=== PATIENT | male | born 1980 | race Two or more races ===

== ENCOUNTER 2016-08-23 21:05 | Emergency (ER) | payer OTHER ==
[2016-08-23 21:14] VITALS: TEMP 98.4; O2SAT 98
[2016-08-23] MEDS ORDERED: MECLIZINE HCL 25 MG TAB PO ONE (22:03)
[2016-08-23] MEDS ORDERED: NS 1,000 ML IV ONE (22:03)
--- NOTE | 2016-08-23 22:05 | EDPHY ---
H & P Stated Complaint: R side AMAYA w/ radiation, dizziness, vertigo, x1wk Time Seen by Provider: 08/23/16 21:55 HPI/ROS: Chief Complaint: Dizziness HPI: 35-year-old male presenting with 1 week dizziness and unsteadiness on his feet. He has a mild headache on the right side. Some nausea but no vomiting. Room is not spinning. Does not feel lightheaded. Does have a history of similar episode about a year ago. He was treated with some pills that he got at the pharmacy and symptoms resolved. He has a history of hypertension but is not compliant with medications. Headache is mild about a 2/10. Symptoms right worse when he looks down or moves his head rapidly. It is not positional. No fevers or chills. No neck pain. No recent illness. ROS: 10 point Review of Systems is negative except as noted in the HPI. PMH: Hypertension, gout, anxiety, vertigo Medications: None Allergies: No known drug allergies Social History: No smoking, occasional alcohol, no recreational drug use Family History: non-contributory Physical Exam: Gen: Awake, Alert, No Distress HEENT: Nose: no rhinorrhea Eyes: PERRLA, EOMI Mouth: Moist mucosa Neck: Supple, no JVD Chest: nontender, lungs clear to auscultation Heart: S1, S2 normal, no murmur Abd: Soft, non-tender, no guarding Back: no CVA tenderness, no midline tenderness Ext: no edema, non-tender Skin: no rash Neuro: CN II-XII intact, Sensation grossly intact, Strength 5/5 in bilateral upper and lower extremities - Personal History Current Tetanus/Diphtheria Vaccine: Yes Current Tetanus Diphtheria and Acellular Pertussis (TDAP): Yes - Medical/Surgical History Hx Asthma: No Hx Chronic Respiratory Disease: No Hx Diabetes: No Hx Cardiac Disease: No Hx Renal Disease: No Hx Cirrhosis: No Hx Alcoholism: No Hx HIV/AIDS: No Hx Splenectomy or Spleen Trauma: No Other PMH: Gout, HTN, vertigo. No psh - Social History Smoking Status: Never smoked Constitutional: Initial Vital Signs Temperature (C) 36.9 C 08/23/16 21:10 Heart Rate 92 08/23/16 21:10 Respiratory Rate 16 08/23/16 21:10 Blood Pressure 168/113 H 08/23/16 21:10 O2 Sat (%) 98 08/23/16 21:10 O2 Delivery Mode Room Air Allergies/Adverse Reactions: No Known Allergies Allergy (Verified 05/07/15 20:51) Home Medications: Medication Instructions Recorded Amlodipine Besylate 08/03/13 Lisinopril 08/03/13 Meclizine HCl [Meclizine HCl 25 mg 25 mg PO BID PRN #20 tab 05/07/15 (RX,OTC)] Advil 08/23/16 Meclizine HCl [Meclizine HCl 12.5 12.5 mg PO Q6 PRN #15 tab 08/23/16 mg (*)] Medical Decision Making - Data Points Medications Given: Discontinued Medications Sodium Chloride (Ns) 1,000 mls @ 0 mls/hr IV ONCE ONE PRN Reason: Wide Open Stop: 08/23/16 22:04 Last Admin: 08/23/16 22:20 Dose: 1,000 mls Meclizine HCl (Meclizine Hcl) 25 mg PO EDNOW ONE Stop: 08/23/16 22:04 Last Admin: 08/23/16 22:20 Dose: 25 mg Departure - Departure Disposition: Home, Routine, Self-Care Clinical Impression: Vertigo, Hypertension Condition: Good Instructions: Hypertension (ED), Vertigo (ED) Additional Instructions: You may take meclizine as needed for your dizziness. Please resume your high blood pressure medications. Is absolutely vital that he takes every day even if you are feeling well. Uncontrolled high blood pressure will cause long-term damage even if you are feeling well. Follow up with your primary care doctor in 2-3 days for re-evaluation and for blood pressure recheck. Return to the emergency depart for worsening headache, nausea, vomiting, worsening dizziness, chest pain, shortness of breath, or any other concerns. Referrals: [facility],. [Clinic] - As per Instructions Prescriptions: Meclizine HCl [Meclizine HCl 12.5 mg (*)] 12.5 mg PO Q6 PRN #15 tab PRN Reason: Dizziness Print Language: Czech
[2016-08-23 23:30] VITALS: BP 118/62; PULSE 74; RESP 18
== END 2016-08-23 23:29 | disposition home or self-care (01) ==
DX: R42 Dizziness and giddiness (principal); I10 Essential (primary) hypertension